=== PATIENT | male | born 1985 | race Caucasian/White ===

== ENCOUNTER 2022-02-13 01:01 | Emergency (ER) | payer OTHER ==
[~2022-02-13] VITALS: Ht 167.6 cm; Wt 60.5 kg
[2022-02-13] MEDS ORDERED: SULTRIDS PO (02:04)
== END 2022-02-13 02:21 | disposition home or self-care (01) ==
LOC: ER 01:01
DX: S61.402A Unspecified open wound of left hand, initial encounter (principal); Y28.8XXA Contact with other sharp object, undetermined intent, initial encounter; L03.114 Cellulitis of left upper limb; F15.10 Other stimulant abuse, uncomplicated; F17.210 Nicotine dependence, cigarettes, uncomplicated; Z79.899 Other long term (current) drug therapy
CPT/HCPCS: 99283

== ENCOUNTER 2022-03-09 20:33 | Emergency (ER) | payer OTHER ==
[~2022-03-09] VITALS: Ht 182.9 cm; Wt 59.0 kg
[~2022-03-09 20:33] MED LIST: SULTRIDS PO
== END 2022-03-10 00:37 | disposition home or self-care (01) ==
LOC: ER 20:33
DX: Z48.00 Encounter for change or removal of nonsurgical wound dressing (principal); F17.210 Nicotine dependence, cigarettes, uncomplicated
CPT/HCPCS: 99283

== ENCOUNTER 2022-03-19 18:30 | Emergency (ER) | payer OTHER ==
[~2022-03-19] VITALS: Ht 177.8 cm; Wt 59.0 kg
[2022-03-19 21:11] LABS: Influenza A, PCR NEGATIVE (NEGATIVE); Influenza B, PCR NEGATIVE (NEGATIVE); Resp Syncytial Virus, PCR NEGATIVE (NEGATIVE); SARS-Cov-2 (COVID-19) PCR, MMC NEGATIVE (NEGATIVE)
== END 2022-03-19 20:29 | disposition home or self-care (01) ==
LOC: ER 18:30
PROVIDERS: Physician Assistant
DX: B34.9 Viral infection, unspecified (principal); Z20.822 Contact with and (suspected) exposure to COVID-19; F17.210 Nicotine dependence, cigarettes, uncomplicated
CPT/HCPCS: 0241U; A9270

== ENCOUNTER 2022-03-20 02:10 | Emergency (ER) | payer OTHER ==
[~2022-03-20] VITALS: Ht 167.6 cm; Wt 59.0 kg
== END 2022-03-20 05:00 | disposition home or self-care (01) ==
LOC: ER 02:10
DX: S91.101A Unspecified open wound of right great toe without damage to nail, initial encounter (principal); F17.210 Nicotine dependence, cigarettes, uncomplicated; X58.XXXA Exposure to other specified factors, initial encounter; Z59.00 Homelessness unspecified
CPT/HCPCS: 99282

== ENCOUNTER 2022-03-21 05:59 | Emergency (ER) | payer OTHER ==
[~2022-03-21] VITALS: Ht 172.7 cm; Wt 68.0 kg
== END 2022-03-21 12:37 | disposition home or self-care (01) ==
LOC: ER 05:59
DX: J06.9 Acute upper respiratory infection, unspecified (principal); I10 Essential (primary) hypertension; F17.210 Nicotine dependence, cigarettes, uncomplicated
CPT/HCPCS: 71046; 94640; 94664; A9270

== ENCOUNTER 2022-07-09 08:38 | Emergency (ER) | payer OTHER ==
[~2022-07-09] VITALS: Ht 172.7 cm; Wt 59.0 kg
[2022-07-09 11:23] LABS: Influenza B, PCR NEGATIVE (NEGATIVE); Resp Syncytial Virus, PCR NEGATIVE (NEGATIVE); SARS-Cov-2 (COVID-19) PCR, MMC NEGATIVE (NEGATIVE)
[2022-07-09 11:26] LABS: Influenza A, PCR POSITIVE (NEGATIVE)
[2022-07-09] MEDS ORDERED: ONDA4ODT MM (11:38)
== END 2022-07-09 11:51 | disposition home or self-care (01) ==
LOC: ER 08:38
PROVIDERS: Student in an Organized Health Care Education/Training Program
DX: J10.1 Influenza due to other identified influenza virus with other respiratory manifestations (principal); Z20.822 Contact with and (suspected) exposure to COVID-19; I10 Essential (primary) hypertension; F17.210 Nicotine dependence, cigarettes, uncomplicated
CPT/HCPCS: 0241U; A9270

== ENCOUNTER → 2024-10-31 | Outpatient (CLI) | payer OTHER ==
[~2024-10-31] MED LIST changes: +ONDA4ODT MM
== END ==
LOC: LAB 15:34 → LAB SHORT 15:34
DX: L03.011 Cellulitis of right finger (principal)
CPT/HCPCS: 87070; 87077; 87147; 87186; 87205